=== PATIENT | male | born 1970 | race Caucasian/White ===

== ENCOUNTER 2017-04-16 17:07 | Inpatient (IN) | payer BC, SELFPAY ==
[~2017-04-16] VITALS: Ht 188 cm; Wt 106.6 kg
[2017-04-16] MEDS ORDERED: MAXZIDE-25 MG1 EACH PO (17:17)
[2017-04-16] MEDS ORDERED: NORVASC5 MG PO (17:17)
[2017-04-16] MEDS ORDERED: CRESTOR20 MG PO (17:18)
[2017-04-16 17:44] LABS: ABSOLUTE EOSINOPHILS 0.4 thou/uL (0.0-0.7); ABSOLUTE LYMPHOCYTES 1.7 thou/uL (0.8-5.3); ABSOLUTE MONOCYTES 0.8 thou/uL (0.0-1.2); BASOPHILS 0.3 %; EOSINOPHILS 4.8 %; HEMATOCRIT 51.1 % (42.0-52.0); HEMOGLOBIN 17.9 gm/dL (14.0-18.0); LYMPHOCYTES 21.8 %; MCHC 34.9 g/dL (28.0-37.0); MCV 85.9 fL (80.0-100.0); MONOCYTES 10.3 %; MPV 8.2 fl. (7.2-11.1); NUCLEATED RBCS 0 /100WBC; PLATELET COUNT* 261 thou/uL (150-400); POLYS 62.8 %; RBC 5.95 mil/uL (4.50-6.00); RDW-CV 12.6 % (10.5-14.5); WBC 7.9 thou/uL (4.0-11.0)
[2017-04-16 17:47] LABS: ANION GAP 9 mmol/L (7-16); APTT 27.1 Seconds (25.0-31.3); BUN 25 mg/dL (7-18); CALCIUM 8.5 mg/dL (8.5-10.1); CHLORIDE 104 mmol/L (98-107); CO2 29 mmol/L (21-32); CREATININE 1.2 mg/dL (0.6-1.3); GLUCOSE 96 mg/dL (70-99); INR 1.2; POTASSIUM 3.3 mmol/L (3.5-5.1); PROTIME 11.4 Seconds (9.20-11.50); SODIUM 142 mmol/L (136-145)
[2017-04-16 18:06] LABS: ALBUMIN 4.4 g/dL (3.4-5.0); ALKALINE PHOSPHATASE 80 U/L (46-116); CK-MB MASS 3.6 ng/mL (<0.5-3.6); LIPASE 310 U/L (73-393); MAGNESIUM 2.4 mg/dL (1.8-2.4); NT-PRO BRAIN NAT PEPTIDE 6 pg/mL (<300); SGOT 433 U/L (15-37); SGPT 196 U/L (30-65); TOTAL BILIRUBIN 0.7 mg/dL (<0.1-1.0); TOTAL PROTEIN 7.7 g/dL (6.4-8.2); TROPONIN-I LEVEL <0.06 ng/mL (<0.06)
[2017-04-16 20:20] VITALS: BP 127/90; BP 134/96
[2017-04-17 01:46] LABS: CALCIUM 8.1 mg/dL (8.5-10.1); CREATININE 1.2 mg/dL (0.6-1.3); MAGNESIUM 2.2 mg/dL (1.8-2.4); POTASSIUM 3.9 mmol/L (3.5-5.1)
[2017-04-17 04:07] VITALS: BP 111/64
[2017-04-17 08:15] VITALS: BP 116/78
[2017-04-17 10:35] LABS: URINE BILIRUBIN NEGATIVE (Negative); URINE BLOOD NEGATIVE (Negative); URINE CLARITY CLEAR; URINE COLOR YELLOW; URINE GLUCOSE-RANDOM NEGATIVE (Negative); URINE KETONES NEGATIVE (Negative); URINE LEUKOCYTES-REFLEX NEGATIVE (Negative); URINE NITRITE-REFLEX NEGATIVE (Negative); URINE PROTEIN NEGATIVE (Negative); URINE UROBILINOGEN 0.2 E.U./dl (0.2-1.0)
[2017-04-17 11:14] VITALS: BP 116/78
[2017-04-17] MEDS ORDERED: NITROGLYCERIN0.4 MG SUBLING (11:14)
--- NOTE | 2017-04-17 12:11 | EKG ---
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
--- NOTE | 2017-04-17 12:11 | EKG ---
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 : 1970 Requested By: Narciso Schneider Order Number: [id number] MD: Mickey Potter Measurements Intervals [place] Rate: 65 P: 38 IN: 187 QRS: 16 QRSD: 95 T: 26 QT: 412 QTc: 429 Interpretive Statements Sinus rhythm Left atrial enlargement No previous ECG available for comparison Electronically Signed On 04-17-2017 12:11:24 DECISION UNIT RN by Mickey Potter [email or web address] <ELECTRONICALLY SIGNED> By: Mickey Potter MD, [facility] 04/17/17 1211 1756 175 Mickey Potter MD, [facility] /EPI
--- NOTE | 2017-04-17 12:14 | EKG ---
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 04/17/17 1213 0529 Mickey Potter MD, [facility] /EPI
--- NOTE | 2017-04-20 15:19 | CON ---
[address] [address] CONSULTATION Name: GLORIASANDI S Room: [address] IN ..#: [id number] Admission: 04/16/17 Attend Phys: Mary Schilling Discharge: 04/17/17 Date of : 74 Report #: [id number] THIS REPORT FOR: //name// CC: Ganga Unger DATE OF SERVICE: 04/17/2017 REQUESTING PHYSICIAN: Nikolai Unger DO REASON FOR CONSULTATION: Chest pain. PRIMARY INJECTION MOLD TECHNICIAN: Dr. Morejon. CHIEF COMPLAINT: Chest pain. HISTORY OF PRESENT ILLNESS: The patient is a 47-year-old man with a history of coronary artery disease, status post PCI in 2011, had had some central and left-sided chest pain described as an achy sensation off and on all day yesterday. It was not associated with physical activity. He was not short of breath or diaphoretic. He denies exertional symptoms. He works out quite frequently. He denies palpitations, heart racing or skipping. His presenting ECG was normal and his serial cardiac troponin levels after being admitted are all normal. He is chest pain free this morning. His blood pressures are normal. PAST MEDICAL HISTORY: He had an unstable angina presentation at [facility] in 2011. Records are not available. He has hyperlipidemia and is a tobacco user prior. He does smoke marijuana daily. SOCIAL HISTORY: He is a nonsmoker for tobacco. He is , works in [employer]. FAMILY HISTORY: Positive for high blood pressure. HOME MEDICATIONS: Amlodipine 5 mg daily, Crestor 20 mg daily, HCTZ/triamterene 37.5/25. PAST SURGICAL HISTORY: Prior throat surgery, ankle surgery. REVIEW OF SYSTEMS: CENTRAL NERVOUS SYSTEM: No seizure or paralysis. GENERAL: No weight loss. RESPIRATORY: No cough or sputum production. CARDIOVASCULAR: No palpitations. Positive chest discomfort. No orthopnea, no [facility] [address] [place] [address] CONSULTATION Name: SANDI CASTRO Room: [address]#: [id number] Admission: 04/16/17 Attend Phys: Mary Schilling Discharge: 04/17/17 Date of : 74 Report #: [id number] PND. ENDOCRINE: No diabetes or thyroid problems. GASTROINTESTINAL: No vomiting, vomiting blood or ulcers. GENITOURINARY: No dysuria or hematuria. HEMATOLOGIC: No anemia or bleeding disorders. ALLERGIES: No seasonal, medical, aspirin or contrast allergies. PSYCHIATRIC: No depression or anxiety. MUSCULOSKELETAL: No arthritis. SKIN: No rashes. EYES: He does use glasses. PERIPHERAL VASCULAR DISEASE: Denies history of cardiovascular disease or claudication. PHYSICAL EXAMINATION: VITAL SIGNS: Blood pressure 116/78, heart rate 74, pulse of 16, temperature 36.5. GENERAL: Pleasant middle-aged male. He is alert, oriented, no apparent distress. NECK: Supple. No jugular venous distention. CARDIOVASCULAR: Regular. I cannot hear a murmur. LUNGS: Clear to auscultation bilaterally. ABDOMEN: Soft, nontender. EXTREMITIES: No peripheral edema. SKIN: Warm and dry. DIAGNOSTIC STUDIES: Electrocardiograms demonstrate a sinus rhythm with normal ST segments, rate 65 at 5:30 in the morning today and last night ECG demonstrated a sinus rhythm with a heart rate of 70, normal ST segments. LABORATORY DATA: Hemoglobin 17.9, white blood count 7.9. Sodium is 143, potassium 3.9, chloride is 108, CO2 is 27, BUN is 26, creatinine is 1.2, AST is 433, ALT is 196. Troponin I is 0.06 x 3 sets. CK-MB is 3.6. His CK level is 12,853 and yesterday was greater than 20,000. IMPRESSION: 1. Chest pain. His symptoms are atypical for angina and seem more likely musculoskeletal given his elevated CK levels, and I would recommend further evaluation with outpatient cardiology, stress test with a treadmill nuclear stress test. 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 2. Coronary artery disease. He has ruled out for an acute myocardial infarction and this does not seem like an acute coronary syndrome. 3. Elevated CK level. I would discontinue his thiazide diuretic. I would push IV fluids over the next 24 hours. 4. Elevated transaminases. I would hold the statin for [place] [address] CONSULTATION Name: SANDI CASTRO Room: [address]#: [id number] Admission: 04/16/17 Attend Phys: Mary Schilling Discharge: 04/17/17 Date of : 74 Report #: [id number] recheck levels. This likely will come down when the CK levels are normal. 5. Hyperlipidemia. As noted above, I would hold the statin for a month. <ELECTRONICALLY SIGNED> By: Mickey Potter MD, FACC 04/20/17 1519 1040 1210Mickey Potter MD, FACC /nt
== END 2017-04-17 11:50 | disposition home or self-care (01) | DRG 303 ==
LOC: M.ERS 17:07 → M.TBA-ER 18:57 → M.2W 19:50
PROVIDERS: Family Medicine; ADMIT Internal Medicine
DX: I25.118 Atherosclerotic heart disease of native coronary artery with other forms of angina pectoris (principal); M62.82 Rhabdomyolysis; S36.119A Unspecified injury of liver, initial encounter; I10 Essential (primary) hypertension; E78.5 Hyperlipidemia, unspecified; E86.0 Dehydration; K76.0 Fatty (change of) liver, not elsewhere classified; M79.602 Pain in left arm; K64.9 Unspecified hemorrhoids; Z95.5 Presence of coronary angioplasty implant and graft; Z87.442 Personal history of urinary calculi; Z79.899 Other long term (current) drug therapy; Z87.891 Personal history of nicotine dependence; X58.XXXA Exposure to other specified factors, initial encounter; Y93.89 Activity, other specified; Y92.89 Other specified places as the place of occurrence of the external cause; Y99.8 Other external cause status; Z82.49 Family history of ischemic heart disease and other diseases of the circulatory system